=== PATIENT | female | born 1980 ===

== ENCOUNTER 2017-01-05 07:06 | Day surgery (SDC) | payer OTHER ==
[2017-01-04 11:43] VITALS: BMI 41.7
[2017-01-05] MEDS ORDERED: LIDOCAINE 1%/EPI 1:100000 (20 ML MULTI DOSE VIAL) ONE (07:08)
[2017-01-05] MEDS ORDERED: MICROFIBRILLAR COLLAGEN 1 GM EACH ONE (07:09)
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
[2017-01-05] MEDS ORDERED: PROPOFOL 20 ML ONE ×3 (08:44→10:37)
[2017-01-05] MEDS ORDERED: ROCURONIUM BROMIDE 50 MG/5 ML VIAL ONE (08:44)
[2017-01-05] MEDS ORDERED: LIDOCAINE HCL/PF 2% SDV 5ML VIAL ONE ×2 (08:44→09:41)
[2017-01-05] MEDS ORDERED: MIDAZOLAM HCL 2 MG/2 ML SINGLE DOSE VIAL ONE (08:44)
[2017-01-05] MEDS ORDERED: SUCCINYLCHOLINE CHLORIDE 200 MG/10 ML VIAL ONE (08:45)
[2017-01-05] MEDS ORDERED: ceFAZolin SODIUM 1 GM VIAL IVPB ONE (09:44)
[2017-01-05] MEDS ORDERED: LIDOCAINE 1%/EPI 1:100000 (20 ML MULTI DOSE VIAL) INF ONE (09:46)
[2017-01-05] MEDS ORDERED: MICROFIBRILLAR COLLAGEN 1 GM EACH TP ONE (09:57)
[2017-01-05] MEDS ORDERED: DEXAMETHASONE SOD PHOSPHATE 4 MG/1 ML VIAL ONE (10:02)
[2017-01-05] MEDS ORDERED: ONDANSETRON 4 MG/2 ML VIAL IVPUSH PRN (10:33)
[2017-01-05] MEDS ORDERED: ACETAMINOPHEN 1000 MG/100 ML VIAL (NON FORMULARY) IVPB ONE (10:34)
[2017-01-05] MEDS ORDERED: LACTATED RINGERS SOLUTION 1,000 ML IV SCH (10:45)
--- NOTE | 2017-01-05 11:10 | OP ---
Operative Note - Note: Operative Date: 01/05/17 Pre-Operative Diagnosis: right thyroid nodule Operation: right thyroidectomy Surgeon: Roger Pepe Department Supervisor: Berkley Ureña Anesthesiologist/ARMY MANAGER: Laura Seymour Anesthesia: General Specimens Removed: thryoid tissue with mass Estimated Blood Loss (mls): 20 Fluid Volume Replaced (mls): 700 Operative Report Dictated: Yes
--- NOTE | 2017-01-05 11:13 | SURG ---
Surgery Locks Tender Note Locks Tender: Berkley Ureña PA-C Date of Service: 01/05/17 Diagnosis: right thyroid nodule Procedure: right thyroidectomy I was present for the entirety of the operative procedure. For further detail, please refer to operative report. Visit type - Case Type Case Type: Scheduled Admission - Emergency Emergency Visit: No - New patient This patient is new to me today: Yes Date on this admission: 01/05/17
--- NOTE | 2017-01-05 11:23 | OP ---
DATE OF OPERATION: 01/05/2017 SURGICAL ATTENDING: James Mcghee MD ASSISTANTS: Arielle and Berkley. PREOPERATIVE DIAGNOSIS: Right thyroid nodule. POSTOPERATIVE DIAGNOSIS: Right thyroid nodule. ANESTHESIA: General endotracheal. PROCEDURE: Right hemithyroidectomy and neck ultrasound. DESCRIPTION OF PROCEDURE: Patient was taken into the operating room, placed in the supine position, endotracheally intubated. Neuromonitoring devices were placed. Neck ultrasound was performed showing a large right posterior thyroid nodule with no evidence of extra thyroidal extension or lymphadenopathy. The patient was then prepped and draped in the usual sterile fashion. Local anesthesia was injected, and a 5-cm horizontal incision was made and carried down through subcutaneous tissues and platysma. Subplatysmal flaps were raised superiorly and inferiorly, and flap hooks were placed for exposure. The mean raphe was incised, and the strap muscles were elevated bilaterally. The right recurrent laryngeal nerve was identified, dissected, and preserved. Superior laryngeal nerve was also found and preserved. Every effort was made to preserve parathyroid tissue. After mobilizing the right thyroid lobe, the superior pole vessels were transected with the LigaSure. The posterior and inferior attachments were transected, and the thyroid was then transected at the isthmus. In this way, the right thyroid lobe was removed. It was checked and examined for parathyroid tissue, and none was found. It was then sent to Pathology for permanent evaluation. Hemostasis was achieved with electrocautery and Avitene, and Valsalva was checked. The wound was then closed in three layers. Sterile dressings were placed. The patient was then awakened, extubated, and taken to recovery in stable condition. Dr. Mcghee, the attending surgeon, was present throughout the entire procedure. JAMES MCGHEE M.D. [id number]
[2017-01-05] MEDS ORDERED: ACETAMINOPHEN INJECTION 100 ML IVPB ONE (11:33)
[2017-01-05 12:45] VITALS: TEMP 98
[2017-01-05 14:01] VITALS: BP 100/56; PULSE 80
--- NOTE | 2017-01-08 16:52 | PATH ---
Surgical Pathology Report Patient Name: [facility]. Rec. #: [id number] /Age/Gender: 1980 (Age: 36) / F Account: [id number] Location: [facility] SURGICAL Taken: 01/05/2017 Received: 01/05/2017 Reported: 01/08/2017 Physicians: Roger Pepe M.D. Specimen(s) Received RIGHT THYROID LOBE Clinical History Right thyroid nodule Final Diagnosis THYROID, RIGHT, LOBECTOMY: BENIGN FOLLICULAR EPITHELIUM WITH NODULAR HYPERPLASIA, CYSTIC AND DEGENERATIVE CHANGES, CONSISTENT WITH ADENOMATOUS/NODULAR GOITER. Electronically Signed Ami Thomas M.D. Gross Description Received in formalin labelled "right thyroid lobe" is a 21 gram lobe of thyroid measuring 5.4 x 3.5 x 1.8 cm. The lobe appears to be composed of 2 separate portions one of which measures 3.4 x 2.4 x 2.0 cm and the other of which measures 3.3 x 2.9 x 1.8 cm. The margin is inked. Cut surface of the smaller nodular area reveals a hemorrhagic and cystic interior. No grossly obvious papillary areas are identified. The smaller nodule is totally submitted in cassettes 1 through 5. Shell Press Operator sections of the remaining thyroid tissue are submitted in cassettes 6 through 10. [facility]/01/05/2017 [facility]/01/05/2017
== END 2017-01-05 14:20 | disposition home or self-care (01) ==
LOC: JASU-SURG 07:06
PROVIDERS: ATTEND Surgery
PROC: 0GTH0ZZ Resection of Right Thyroid Gland Lobe, Open Approach (ICD-10-PCS; principal; 2017-01-05 09:00)
DX: E04.1 Nontoxic single thyroid nodule (principal)
CPT/HCPCS: 84703; 88307-TC; 94760